=== PATIENT | female | born 1945 | race Caucasian/White ===

== ENCOUNTER 2024-01-15 10:07 | Day surgery (SDC) | payer OTHER ==
[~2024-01-15] VITALS: Ht 160 cm; Wt 77.2 kg
[~2024-01-15 10:07] MED LIST: ASPI81CH PO; Balanced Salt Epinephrine Irrigation Solution 500 mL IR SCH; Lidocaine HCl/Pf 1% 5 ML VIAL ONE; Lidocaine HCl/Pf 1% 5 ML VIAL XX SCH; Moxifloxacin HCL 0.5 MG/0.1 ML 0.4MLSYR RIGHTEYE SCH; PHENYLEPHRINE\\TROPICAMIDE\\TETRACAINE OPHTHALMIC DILATING SOLN RIGHTEYE PRN; Povidone-Iodine 450 DROP/30 ML Solution RIGHTEYE SCH; Zithromax250 MG PO
[2024-01-15] MEDS ORDERED: LATA.005SO LEFTEYE (10:28)
[2024-01-15] MEDS ORDERED: IBUP400 (10:28)
[2024-01-15] MEDS ORDERED: Midazolam HCl 1MG / ML 2ML Vial ONE (10:40)
[2024-01-15] MEDS ORDERED: Tetracaine HCl 0.5% Opth Soln 15 ml XX ONE (11:18)
[2024-01-15 11:45] VITALS: BP 119/67
== END 2024-01-15 12:07 | disposition home or self-care (01) ==
LOC: ORSCSDS 10:07
PROVIDERS: Student in an Organized Health Care Education/Training Program
PROC: 08RJ3JZ Replacement of Right Lens with Synthetic Substitute, Percutaneous Approach (ICD-10-PCS; principal; 2024-01-15 11:30)
DX: H25.813 Combined forms of age-related cataract, bilateral (principal); H40.1190 Primary open-angle glaucoma, unspecified eye, stage unspecified; E66.9 Obesity, unspecified; Z68.30 Body mass index [BMI] 30.0-30.9, adult; Z79.82 Long term (current) use of aspirin; Z79.899 Other long term (current) drug therapy
CPT/HCPCS: J2003; J2250; V2632

== ENCOUNTER 2024-01-29 10:06 | Day surgery (SDC) | payer OTHER ==
[~2024-01-29] VITALS: Ht 160 cm; Wt 76.6 kg
[~2024-01-29 10:06] MED LIST changes: +IBUP400; +LATA.005SO LEFTEYE; -Lidocaine HCl/Pf 1% 5 ML VIAL ONE; +Moxifloxacin HCL 0.5 MG/0.1 ML 0.4MLSYR LEFTEYE SCH; -Moxifloxacin HCL 0.5 MG/0.1 ML 0.4MLSYR RIGHTEYE SCH; +PHENYLEPHRINE\\TROPICAMIDE\\TETRACAINE OPHTHALMIC DILATING SOLN LEFTEYE PRN; -PHENYLEPHRINE\\TROPICAMIDE\\TETRACAINE OPHTHALMIC DILATING SOLN RIGHTEYE PRN; +Povidone-Iodine 450 DROP/30 ML Solution LEFTEYE SCH; +Povidone-Iodine 450 DROP/30 ML Solution ONE; -Povidone-Iodine 450 DROP/30 ML Solution RIGHTEYE SCH; +Tetracaine HCl/Pf 0.5% Opth Soln 4 ml ONE; +Triamcinolone Inj Susp 40 MG / ML 1ML Vial INJ SCH
[2024-01-29] MEDS ORDERED: Midazolam HCl 1MG / ML 2ML Vial ONE (11:26)
[2024-01-29 12:38] VITALS: BP 120/70
== END 2024-01-29 12:20 | disposition home or self-care (01) ==
LOC: ORSCSDS 10:06
PROVIDERS: Student in an Organized Health Care Education/Training Program
PROC: 08RK3JZ Replacement of Left Lens with Synthetic Substitute, Percutaneous Approach (ICD-10-PCS; principal; 2024-01-29 11:30)
DX: H25.812 Combined forms of age-related cataract, left eye (principal); H40.1130 Primary open-angle glaucoma, bilateral, stage unspecified; Z79.899 Other long term (current) drug therapy; Z96.1 Presence of intraocular lens
CPT/HCPCS: J2250; V2632